=== PATIENT | male | born 1995 | race Caucasian/White ===

== ENCOUNTER 2023-09-11 16:20 | Emergency (ER) | payer BC ==
[~2023-09-11] VITALS: Ht 175.3 cm; Wt 56.7 kg
[2023-09-11 16:49] VITALS: BP 117/72; TEMP 98.2
[2023-09-11] MEDS ORDERED: IBUPROFEN 400 MG TABLET PO ONE (17:30)
[2023-09-11] MEDS ORDERED: IBUPROFEN 400 MG TABLET ONE (17:34)
[2023-09-11] MEDS ORDERED: IBUP-1957 PO (19:04)
[2023-09-11 19:07] VITALS: O2SAT 97
== END 2023-09-11 19:12 | disposition home or self-care (01) ==
LOC: ER 16:26
DX: B34.9 Viral infection, unspecified (principal); Z20.822 Contact with and (suspected) exposure to COVID-19; Z79.899 Other long term (current) drug therapy
CPT/HCPCS: 99283; 87426; 87804 ×2; C9803